=== PATIENT | female | born 1965 | race Caucasian/White ===

== ENCOUNTER 2019-12-28 03:47 | Emergency (ER) | payer OTHER ==
[~2019-12-28] VITALS: Ht 157.5 cm; Wt 76.8 kg
--- NOTE | 2019-12-28 04:00 | NUR ---
SPOKE WITH JONATHAN CABRALES REGARDING PT REPORTED INCREASING PAIN. GIVEN VERBAL ORDER FOR TORADOL 15MG IV X1 DOSE NOW.
[2019-12-28 04:15] LABS: CLARITY,URINE SLIGHTLY CLOUDY (Clear); COLOR,URINE YELLOW (Yellow); GLUCOSE, URINE NEGATIVE (Neg); KETONES,URINE NEGATIVE (Neg); LEUKOCYTE ESTERASE ,URINE TRACE (Neg); NITRITES, URINE NEGATIVE (Neg); OCCULT BLOOD,URINE MODERATE (Neg); PH,URINE 5.5 (4.8-8.0); PROTEIN,URINE 30 mg/dl (Neg); UROBILINOGEN,URINE 0.2 E.U/dL (0.2-1.0)
[2019-12-28] MEDS ORDERED: ketorolac trometh. 30mg/ml inj. IV ONE (04:15)
[2019-12-28 04:16] LABS: URINE HCG NEGATIVE (NEG)
[2019-12-28 04:16] LABS: BASOPHILS # (AUTO) 0.1 X10'3 (0-0.2); EOSINOPHILS # (AUTO) 0.3 X10'3 (0-0.9); EOSINOPHILS % (AUTO) 2.3 % (0-6); HEMATOCRIT 42.9 % (35.0-45.0); HEMOGLOBIN 14.4 g/dl (12.0-16.0); LYMPHOCYTES # (AUTO) 4.1 X10'3 (1.1-4.8); LYMPHOCYTES % (AUTO) 33.9 % (21-51); MEAN CORPUSCULAR HEMOGLOBIN 31.4 PG (27.0-31.0); MEAN CORPUSCULAR HGB CONC 33.6 g/dL (33.0-36.5); MEAN CORPUSCULAR VOLUME 93.6 FL (78-98); MEAN PLATELET VOLUME 8.8 FL (7.4-10.4); MONOCYTES % (AUTO) 8.4 % (2-12); NEUTROPHILS # (AUTO) 6.5 X10'3 (1.8-7.7); NEUTROPHILS % (AUTO) 54.4 % (42-75); PLATELET COUNT 260 X10'3 (140-440); RED BLOOD COUNT 4.58 X10'6 (4.20-5.60); RED CELL DISTRIBUTION WIDTH 13.2 % (11.5-14.5)
[2019-12-28 04:21] LABS: UA COLLECTION TYPE CLN CATCH MIDSTREAM
[2019-12-28 04:23] LABS: BACTERIA,URINE 1+ /HPF (Neg); SQUAMOUS EPITHELIAL CELL,UR FEW /LPF (FEW); WBC,URINE 0-4 /HPF (0-4)
[2019-12-28 04:32] LABS: ALANINE AMINOTRANSFERASE 129 U/L (12-78); ALBUMIN 3.8 G/DL (3.4-5.0); ALBUMIN/GLOBULIN RATIO 1.2 (1.1-1.5); ALKALINE PHOSPHATASE 107 IU/L (46-116); ANION GAP 7 (8-16); ASPARTATE AMINO TRANSFERASE 76 U/L (10-37); BILIRUBIN,TOTAL 0.4 MG/DL (0.1-1.0); BLOOD UREA NITROGEN 14 MG/DL (7-18); BUN/CREATININE RATIO 12.3 (6.6-38.0); CHLORIDE 106 MMOL/L (99-107); CREATININE 1.14 MG/DL (0.40-0.90); GLUCOSE 150 MG/DL (70-104); LIPASE 107 U/L (73-393); POTASSIUM 3.9 MMOL/L (3.5-5.1); SODIUM 141 MMOL/L (135-145); TOTAL CARBON DIOXIDE 28.2 MMOL/L (24-32); TOTAL PROTEIN 7.1 G/DL (6.4-8.2); eGFR 49 ML/MIN
[2019-12-28] MEDS ORDERED: HYDR-4353 PO (05:57)
[2019-12-28] MEDS ORDERED: ONDA4TAB6 PO (05:57)
[2019-12-28 06:13] VITALS: BP 133/79
== END 2019-12-28 06:09 | disposition home or self-care (01) ==
LOC: ER 03:48
DX: N23 Unspecified renal colic (principal); N20.1 Calculus of ureter; F12.90 Cannabis use, unspecified, uncomplicated; Z90.49 Acquired absence of other specified parts of digestive tract; Z91.011 Allergy to milk products; Z88.5 Allergy status to narcotic agent; Z79.899 Other long term (current) drug therapy
CPT/HCPCS: 36415; 74176; 80053; 81001; 81025; 83690; 85025; 87088; 96374; 99284; J1885